=== PATIENT | female | born 1980 | race Caucasian/White ===

== ENCOUNTER → 2019-04-26 11:55 | Outpatient (BNVA) | payer BC, SELFPAY | PROVIDERS: Family Provider Family Medicine; Visit Provider Obstetrics & Gynecology | DX: Z12.4 Encounter for screening for malignant neoplasm of cervix (principal); N92.0 Excessive and frequent menstruation with regular cycle | CPT/HCPCS: 88175 ==

== ENCOUNTER 2019-12-07 14:30 | Outpatient (CLI) | payer BC, SELFPAY ==
--- NOTE | 2019-12-07 14:41 | XRR_ITS ---
PROCEDURE INFORMATION: Exam: XR Chest, 2 Views Exam date and time: 12/07/2019 2:52 PM Age: 39 years old Clinical indication: Condition or disease; Lung condition and disease; Other: Asthmatic bronchitis/recent covid TECHNIQUE: Imaging protocol: XR of the chest Views: 2 views. COMPARISON: No relevant prior studies available. FINDINGS: Lungs: Unremarkable. No consolidation. Pleural space: Unremarkable. No pleural effusion. No pneumothorax. Heart/Mediastinum: Unremarkable. No cardiomegaly. Bones/joints: Unremarkable. XR/XR chest 2V* [id number] IMPRESSION: No acute findings.
== END 2019-12-07 14:31 | disposition home or self-care (01) ==
LOC: RAD 14:39
PROVIDERS: PCP Family Medicine; Visit Provider Nurse Practitioner Family
DX: J45.909 Unspecified asthma, uncomplicated (principal)
CPT/HCPCS: 71046

== ENCOUNTER → 2021-08-06 14:37 | Outpatient (BNVA) | payer OTHER, BC, SELFPAY | PROVIDERS: PCP Family Medicine; Visit Provider Family Medicine | DX: Z00.00 Encounter for general adult medical examination without abnormal findings (principal); E03.9 Hypothyroidism, unspecified | CPT/HCPCS: 87624 ==

== ENCOUNTER → 2021-08-13 13:56 | Outpatient (BNVA) | payer OTHER, BC, SELFPAY | PROVIDERS: PCP Family Medicine; Visit Provider Family Medicine | DX: Z00.00 Encounter for general adult medical examination without abnormal findings (principal) | CPT/HCPCS: 84443; 85025 ==

== ENCOUNTER 2021-12-23 09:20 | Day surgery (SDC) | payer OTHER, SELFPAY ==
[2021-12-21 10:00] VITALS: BMI 24.2
--- NOTE | 2021-12-21 10:32 | ANES.PREANE2 ---
Pre-Anesthetic Assessment Height/Weight: Height 1.68 m Weight 68.039 kg Preop Diagnosis: Menorrhagia Operation Date: 12/23/21 10:30 Proposed Procedures p Hysteroscopy with Endometrial ablation 90918,N92.0 Allergic to Latex(Not Applicable) - Jc León MD s Hysteroscopy w/ Myosure(Not Applicable) - Jc León MD s Dilation And Curettage (D&C)(Not Applicable) - Jc León MD Familial anesthetic complications: Syncopal after prior surgeries Social No alcohol and No tobacco Exam alert, oriented x 3, clear to auscultation bilaterally and regular rate & rhythm Airway Mallampati: Class II Dentition: full Pulmonary None reported CV/HEM Anemia None reported Hepatic None reported GI None reported Metabolic Thyroid Disease [facility] None reported Neuropsych 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 Only takes synthroid for the pituitary, no other hormones. No issues with increased intracranial pressures. Anesthetic Plan ASA status: 3 Anesthesia: General Risk of > 500 ml blood loss (7ml/kg in children): No Other Pertinent Information Patient has tendency towards vasovagal syncope, passed out d/t experiencing pain, causing a fall. Medications/Allergies Home Medications Medication Instructions Recorded Confirmed Last Taken Type levothyroxine 200 mcg capsule 200 mcg PO DAILY #30 caps 10/06/21 12/21/21 12/19/21 Rx Allergies Allergy/AdvReac Type Severity Reaction Status Date / Time latex Allergy Severe rash Verified 12/21/21 09:59 acetaminophen Allergy swelling Verified 12/21/21 09:59 [From Capital with Codeine] rash cephalexin [From Keflex] Allergy hives, Verified 12/21/21 09:59 swelling ciprofloxacin Allergy hives, Verified 12/21/21 09:59 swelling codeine Allergy swelling Verified 12/21/21 09:59 [From Capital with Codeine] rash metronidazole [From Flagyl] Allergy hives, Verified 12/21/21 09:59 swelling nitrofurantoin Allergy hives, Verified 12/21/21 09:59 [From Macrobid] swelling Penicillins Allergy hives Verified 12/21/21 09:59 Sulfa (Sulfonamide Allergy hives, Verified 12/21/21 09:59 Antibiotics) swelling [facility] Anesthesia Medical History (Updated 04/28/19 @ 18:11 by Mark Monzon MD) Anxiety Congenital blindness Left eye History of herpes genitalis Hypothyroidism, postsurgical Surgical History (Updated 11/16/21 @ 09:46 by Mally Bhakta, RN) History of bilateral tubal ligation (04/10/04) Performed at time of section. Performed by Dr. Monzon at [facility] in [place], [place]. History of delivery (11/17/01) Dx: Active herpes. Performed at [facility] in [place], [place]. History of delivery (04/23/03) Repeat LTCS. Performed by Dr. Monzon at [facility] in [place], [place] History of delivery (04/10/04) Repeat LTCS with BTL. Performed by Dr. Monzon at [facility] in [place], [place] History of eye surgery (~2004) Cosmetic. Due to congenital blindness in the left eye History of foot surgery (~2017) left foot for tendon resection History of laparoscopy (07/20/05) Lysis of adhesions. Dx: Pelvic pain, Dyspareunia. Performed by Dr. Monzon at [facility] in [place], [place]. to have adhesions of omentum to the anterior abdominal wall, uterus to anterior abdominal wall. History of laparoscopy (02/03/10) Lysis of adhesions. Dx: Pelvic pain, Dyspareunia. Performed by Dr. Monzon at [facility] in [place], [place]. adhesions of omentum to anterior abdominal wall. History of thyroidectomy (~2007) Performed by Dr. Morales in [facility] History of tonsillectomy and adenoidectomy (~1999) History of wisdom tooth extraction (~1994) Family History (Updated 11/16/21 @ 09:48 by Mally Bhakta, RN) Mother Thyroid disease Grandmother Ovarian cancer paternal age onset young Colon cancer paternal , states that she was young Thyroid disease maternal Uterine cancer paternal age onset was young Family/Other Thyroid disease maternal aunts Denies family history of Diabetes Clotting disorder Heart disease Hyperlipidemia Anesthesia complication Bleeding disorder Hypertension Stroke Social History Smoking and tobacco status: never smoked Alcohol intake: never Female Reproductive History Date of last menstrual period: 12/20/21 Data Anesthesia Cardiac Studies: No Data to Display
[2021-12-21 10:38] LABS: Basophils % 0.6 %; Eosinophils # 0.1 10^3/uL (0.0-0.8); Eosinophils % 2.2 %; Hematocrit 36.1 % (37.0-47.0); Lymphocytes # 1.6 10^3/uL (0.8-4.8); Lymphocytes % 24.4 %; Mean Corpuscular HGB Conc 30.5 g/dL (30.0-36.0); Mean Corpuscular Hemoglobin 24.2 pg (28.0-34.0); Mean Corpuscular Volume 79.3 fl (81-99); Monocytes # 0.5 10^3/uL (0.2-0.9); Monocytes % 7.4 %; Neutrophils # 4.13 10^3/uL (1.8-7.7); Neutrophils % 65.1 %; Nucleated Red Blood Cells % 0 %; Platelet Count 291 10^3/cmm (130-400); Red Blood Count 4.55 10^6/uL (4.1-5.3); Red Cell Distribution Width 15.3 % (12.1-15.1); White Blood Count 6.4 10^3/uL (4.0-10.0)
[2021-12-21 11:10] LABS: Alanine Aminotransferase 7 U/L (0-33); Albumin Level 3.8 g/dL (3.5-5.2); Alkaline Phosphatase 91 U/L (35-105); Anion Gap 11.4 (5-19); Aspartate Amino Transferase 11 U/L (0-32); Blood Urea Nitrogen 10 mg/dL (6-20); Calcium 9.1 mg/dL (8.5-10.5); Carbon Dioxide 28 mmol/L (22-29); Chloride 98 mmol/L (98-107); Globulin 3.4 g/dL (1.3-4.6); Glucose 87 mg/dL (65-115); Osmolality Calculated 276 mOsm/kg (285-295); Potassium 3.4 mmol/L (3.5-5.1); Sodium 134 mmol/L (136-145); Total Bilirubin 0.2 mg/dL (0.15-1.2); Total Protein 7.2 g/dL (6.6-8.7)
[2021-12-23] MEDS: scopolamine 1.5 Patch 1 PATCH TRANSDERMA (09:35)
[2021-12-23 09:46] VITALS: BP 172/115; PULSE 85; RESP 18; TEMP 36.3; O2SAT 98
[2021-12-23] MEDS: sodium chloride 0.9% 500 ML IV (10:08)
--- NOTE | 2021-12-23 10:22 | P.ANESUD_ITS ---
Pre-Anesthetic Update Pre-Anesthetic Assessment: Date of Surgery/Procedure: 12/23/21 Preop Ainsley gnosis: Menorrhagia Proposed Procedure: Operation Date: 12/23/21 10:30 Proposed Procedures p Hysteroscopy with Endometrial ablation 94342,N92.0 Allergic to Latex(Not Applicable) - Jc León MD s Hysteroscopy w/ Myosure(Not Applicable) - Jc León MD s Dilation And Curettage (D&C)(Not Applicable) - Jc León MD Any changes to Pre-Anesthetic Assessment?: No Last Intake: Intake Last Liquid Date 12/22/21 Last Liquid Time 18:00 Last Solid Date 12/22/21 Last Solid Time 18:00 Labs Last 48hrs: Short CBC 12/21/21 Range/Units 10:23 WBC 6.4 (4.0-10.0) 10^3/ uL Hgb 11.0 L (11.5-15.3) g/dL Hct 36.1 L (37.0-47.0) % MCV 79.3 L (81-99) fl Plt Count 291 (130-400) 10^3/c mm Neut % (Auto) 65.1 % Neut # (Auto) 4.13 (1.8-7.7) 10^3/u L BMP 12/21/21 10:23 Sodium 134 L Potassium 3.4 L Chloride 98 Carbon Dioxide 28 BUN 10 Creatinine 0.8 Glucose 87 Calcium 9.1 Liver Function 12/21/21 Range/Units 10:23 Total Bilirubin 0.2 (0.15-1.2) mg/dL AST 11 (0-32) U/L ALT 7 (0-33) U/L Alkaline Phosphata se 91 (35-105) U/L Albumin 3.8 (3.5-5.2) g/dL Blood Bank 12/21/21 10:23 Blood Type O Positive Rho(D) Type Positive Antibody Screen Negative Vitals: Temperature 97.4 F L 12/23/21 09:46 Temperature Source Temporal Artery S can 12/23/21 09:46 Pulse Rate 85 12/23/21 09:46 Respiratory Rate 18 12/23/21 09:46 Blood Pressure 172/115 12/23/21 09:46 Blood Pressure Madeline n 134 12/23/21 09:46 Pulse Oximetry 98 12/23/21 09:46 Oxygen Delivery Me thod 12/23/21 09:46 Exam: Pre-Anes Outpt Exam: alert, oriented x 3, clear to auscultation bilaterally and regular rate & rhythm Cardiac Studies: No Data to Display
[2021-12-23] MEDS: sodium chloride 0.9% 1,000 ML 30 ML IV (10:41)
[2021-12-23 11:02] LABS: OR HCG Qualitative Urine Negative (Negative)
--- NOTE | 2021-12-23 11:04 | W.PM.OPSUD ---
Surgery/Procedure H&P Update DATE OF PROCEDURE: December 23, 2021 DATE H&P PERFORMED: 12/21/21 H&P UPDATE INFORMATION: I have reviewed H&P completed within last 30 days, I have examined patient prior to procedure and No changes to prior documentation PREOP DIAGNOSIS: Menorrhagia PLANNED PROCEDURE: Operation Date: 12/23/21 10:30 Proposed Procedures p Hysteroscopy with Endometrial ablation 95276,N92.0 Allergic to Latex(Not Applicable) - Jc León MD s Hysteroscopy w/ Myosure(Not Applicable) - Jc León MD s Dilation And Curettage (D&C)(Not Applicable) - Jc León MD
[2021-12-23 11:08] LABS: Add Urine Microscopic? NO; Charge for UA Resulting for Rev
[2021-12-23 11:23] LABS: Bilirubin Urine Neg (Negative); Blood Urine Neg (Negative); Glucose Urine UA Norm (Normal); Ketones Urine Negative (Negative); Leukocyte Esterase Urine Negative (Negative); Nitrate Urine Negative (Negative); Protein Urine Neg (Negative); Urine Appearance Clear (CLEAR); Urine Color Yellow (Yellow); Urobilinogen Urine Norm (Negative); pH Urine 7 (5-7)
[2021-12-23] MEDS: levofloxacin-dextrose 5 % 500 MG/100 ML PREMIX 100 MG IV (11:56)
[2021-12-23] MEDS: lidocaine 2% INJ 20 mL 10 ML INJECTION (12:43)
--- NOTE | 2021-12-23 12:47 | PM.OP ---
Operative Report Date of procedure: December 23, 2021 Pre-op diagnosis: Preop Diagnosis Menorrhagia Post-op diagnosis: Same as above Post-op findings: Referral active in the [facility] Procedure done: Hysteroscopy and D&C via MyoSure. Endometrial ablation via NovaSure Specimens removed/disposition: Endometrial curettings Surgeon: Jc León MD Estimated blood loss (mL): 10 IV fluids (mL): 600 Urine output (mL): 150 Complications: None Procedure: After informed consent, the risks included but were not limited to bleeding, infection, injury to internal organs. The patient was counseled on a possible laparotomy and on the potential need for hysterectomy. The patient expressed understanding of the risks involved, all questions were answered, and the patient consented to the procedure. The patient was taken to the operating room where general anesthesia was administered. She was placed in the dorsal lithotomy position and prepped and draped in sterile fashion. A time out procedure was performed. The patient was examined under anesthesia and found to have a normal uterus with normal adnexa. A sterile weight speculum was placed in the vagina. The uterus was then gently sounded to 8 cm, and the cervix was dilated. The 0 degrees MyoSure hysteroscope was advanced gently to the uterine fundus while visualizing the monitor. Survey of the uterine cavity showed: the fundus shows normal proliferative endometrium; left ostium was visualized, and lateral wall with proliferative endometrium; right ostium visualized, and lateral wall with proliferative endometrium; anterior and posterior hodges are with proliferative endometrium; endocervical canal is normal. The MyoSure device was advanced and the direct visualization the endometrium was morcellated without complication. At the end of morcellation the fluid deficit was 230 mL and was estimated at approximately 100 mL were on the floor. Then proceeded to perform the endometrial ablation. The length of the cervical canal was 3 cm and the canal was dilated to 8 mm with Leny?s dialators. and the 2.7 cm hysteroscope advanced gently to the uterine fundus while visualizing the monitor. Survey of the uterine cavity showed: fundus normal proliferative endometrium; left and right ostiums visualized, anterior wall with proliferative endometrium; and posterior wall with proliferative endometrium; the endocervical canal is normal. No intrauterine lesions noted. The hysteroscope was removed. A curette was advanced gently to the uterine fundus and rotated to clear the uterus. A sharp curettage wan then performed until a gritty texture was noted. There was minimal bleeding noted. The sterile NovaSure? Disposable Device package was opened, connected and tested per instructions. It was found to be working properly. The device?s array is completely enclosed by the external sheath and the WIDTH dial reads approximately 0.5 cm. The appropriate cavity length settings was set 5 cm. Adjust and lock the cavity length setting feature on the Disposable Device to the value obtained. The Cervical Collar was fully retracted to its proximal position. Confirmed that the cervix was dilated to 8.0 mm. While maintaining a slight traction on the tenaculum to minimize the angle of the uterus. In-line with the axis of the uterus the Disposable Device was inserted transcervically into the uterine cavity and advance the device until the distal end of the sheath touched the fundus. The handles were slowly squeezed up to the point of increased resistance without locking it. The WIDTH dial read 4 cm. The Disposable Device handles were slowly squeezed together while gently moving the Disposable Device -0.5 cm to and from the fundus and rotating the handle of the Disposable Device 45? counterclockwise from the vertical plane and 45? clockwise from the vertical plane until the handles locked and confirmed the with dial read greater than 2.5 cm. The Disposable Device was gently moved using anterior, posterior and lateral movements. The Disposable Device was slightly pulled back until the WIDTH dial reading reduced by approximately 0.2-0.5 cm. While holding the tenaculum, the Disposable Device was advance to the fundus, maintaining slight forward pressure. The WIDTH dial read to the previous measurement. The Cervical Collar was slide forward until it forms a seal against the external cervical os. The value indicated on the width dial into the NovaSure? RF Controller. In Automatic Mode the Cavity Integrity Assessment (PHILL) procedure by stepping on the foot switch once was began. The cavity integrity assessment LED signaled the test has passed. The ablation cycle started was after the successful completion of the Cavity Integrity Assessment test. Termination of the ablation was automatic at 55 seconds. The Cervical Collar was slide it to its proximal position. The Disposable Device was unlock, holding the front warp knit operator stationary and pulling the rear handles backwards until the Closed Array indicator reads closed the Disposable Device was withdrawn from the uterine cavity. A hysteroscopy was performed post ablation to confirm therapy it was noted that endometrial cavity had been thoroughly ablated. Prior to this, a sharp curettage was performed, and endometrial curettings were also collected. The hysteroscope and the tenaculum were removed with goad hemostasis noted. The patient tolerated the procedure well. The patient was taken to the recovery area in stable condition.
[2021-12-23 12:58] VITALS: BP 141/89; PULSE 95; RESP 17; TEMP 36.7; O2SAT 100
[2021-12-23 13:05] VITALS: BP 136/95; PULSE 100; RESP 17; O2SAT 100
[2021-12-23 13:11] VITALS: BP 138/96; PULSE 96; RESP 20; TEMP 36.3; O2SAT 100
[2021-12-23 13:14] VITALS: BP 132/84; PULSE 90; RESP 17; O2SAT 99
[2021-12-23 13:29] VITALS: BP 132/88; PULSE 88; RESP 17; O2SAT 96
--- NOTE | 2021-12-23 14:47 | ANE.PACU2 ---
Inpatient post-anesthesia follow up: Airway intact: Yes Vital signs: Temperature 97.3 F Pulse Rate 88 Respiratory Rate 17 Blood Pressure 132/88 Pulse Oximetry 96 Oxygen Delivery Me thod Room Air Oxygen Flow Rate 10 Fraction of Inspir ed Oxygen Hydration adequate: Yes Nausea and vomiting: No Pain level: 1 Mental status: Baseline
== END 2021-12-23 13:45 | disposition home or self-care (01) ==
PROVIDERS: PCP Family Medicine; Visit Provider Obstetrics & Gynecology
PROC: 0U598ZZ Destruction of Uterus, Via Natural or Artificial Opening Endoscopic (ICD-10-PCS; CPT 58563; principal; 2021-12-23 10:20)
PROC: 0UDB8ZZ Extraction of Endometrium, Via Natural or Artificial Opening Endoscopic (ICD-10-PCS; CPT 58558; 2021-12-23 10:20)
PROC: (CPT 58120; 2021-12-23 10:20)
DX: N92.0 Excessive and frequent menstruation with regular cycle (principal); F41.9 Anxiety disorder, unspecified; E03.9 Hypothyroidism, unspecified
CPT/HCPCS: 58558; 36415; 80053; 81003; 81025; 84703; 85025; 86850; 86900; 88305; J1100; J1885; J1956; J2405; J2704; J3010; J7030; J7040

== ENCOUNTER → 2022-01-08 10:19 | Outpatient (BNVA) | payer OTHER, SELFPAY | PROVIDERS: PCP Family Medicine; Visit Provider Obstetrics & Gynecology | DX: Z87.440 Personal history of urinary (tract) infections (principal) | CPT/HCPCS: 81000 ==

== ENCOUNTER → 2022-04-26 10:15 | Outpatient (BNVA) | payer OTHER, SELFPAY | PROVIDERS: PCP Family Medicine; Visit Provider Internal Medicine | DX: E89.0 Postprocedural hypothyroidism (principal) | CPT/HCPCS: 84439; 84443; 84480 ==

== ENCOUNTER → 2022-08-31 12:03 | Outpatient (BNVA) | payer OTHER, SELFPAY | PROVIDERS: PCP Family Medicine; Visit Provider Family Medicine | DX: I10 Essential (primary) hypertension | CPT/HCPCS: 80053; 80061; 85025 ==

== ENCOUNTER 2022-09-13 08:57 | Outpatient (CLI) | payer OTHER, SELFPAY ==
--- NOTE | 2022-09-13 09:13 | MM_ITS ---
WS: [id number] BILATERAL 3D TOMOSYNTHESIS DIGITAL SCREENING MAMMOGRAPHY WITH CAD CLINICAL INFORMATION: SCREENING HISTORY: Screening mammogram. No current complaints. COMPARISON: None. TECHNIQUE: Bilateral CC and MLO views. FINDINGS: The breasts are composed of heterogeneous fibroglandular density tissue, which can limit the detectio n of small underlying mass lesions. No suspicious mass, asymmetry, calcifications, or architectural d istortion. No evidence of malignancy. Diffuse scattered punctate calcifications RIGHT greater than LE FT breast. This is similar to previous. MM/[place] [id number] IMPRESSION: BI-RADS: 2-Benign FOLLOW UP: 1 Year Follow-up Recommend return to annual screening mammography.
== END 2022-09-13 08:58 | disposition home or self-care (01) ==
LOC: RAD 09:02 → MOBLMAM 09:11
PROVIDERS: PCP Family Medicine; Visit Provider Family Medicine
DX: Z12.31 Encounter for screening mammogram for malignant neoplasm of breast (principal)
CPT/HCPCS: 77063; 77067

== ENCOUNTER → 2022-09-14 13:28 | Outpatient (BNVA) | payer OTHER, SELFPAY | PROVIDERS: PCP Family Medicine; Visit Provider Podiatrist Foot & Ankle Surgery | DX: L84 Corns and callosities; M89.8X7 Other specified disorders of bone, ankle and foot | CPT/HCPCS: 73630 ==

== ENCOUNTER 2022-10-27 05:52 | Day surgery (SDC) | payer OTHER, SELFPAY ==
[2022-10-26 11:05] VITALS: BMI 31.2
[2022-10-27 06:10] VITALS: BP 153/99; PULSE 74; RESP 16; TEMP 36.6; O2SAT 100
[2022-10-27 06:11] VITALS: BMI 25.8
[2022-10-27] MEDS: gabapentin 300 mg Capsule PO (06:17)
[2022-10-27] MEDS: CELEcoxib 200 mg Capsule 400 MG PO (06:17)
[2022-10-27] MEDS: sodium chloride 0.9% 1,000 ML 30 ML IV (06:18)
--- NOTE | 2022-10-27 06:39 | ANES.PREANE2 ---
Pre-Anesthetic Assessment Height/Weight: Height 1.68 m Weight 72.575 kg O2 Del Method Room Air 10/27/22 06:12 Preop Diagnosis: Right foot fifth digit exostosis Operation Date: 10/27/22 07:00 Proposed Procedures p Partial excision right foot 5th digit proximal phalanx 54376 m89.8X7(Right) - Abebe Stiles, DPM Was Beta Kolton taken within 24 hours: N/A Was Clonidine taken within 24 hours: N/A Last intake: Intake Last Liquid Date 10/26/22 Last Liquid Time 18:00 Last Solid Date 10/26/22 Last Solid Time 18:00 Social No tobacco Exam alert, oriented x 3, clear to auscultation bilaterally and regular rate & rhythm Airway Submandibular: within normal limits Cervical ROM: within normal limits Mallampati: Class III History/ROS No significant history except as noted CV/HEM Hypertension Metabolic Thyroid Disease Neuropsych Syncope Hx vasovagal syncope Anesthetic Plan ASA status: 3 Anesthesia: General (LMA) Risk of > 500 ml blood loss (7ml/kg in children): No Medications/Allergies Home Medications Medication Instructions Recorded Confirmed Last Taken Type levothyroxine 200 mcg tablet 200 mcg PO DAILY #90 tabs 07/06/22 10/26/22 10/26/22 Rx (Synthroid) amlodipine 2.5 mg tablet 2.5 mg PO DAILY #30 tabs 08/12/22 10/26/22 10/26/22 Rx naltrexone 8 mg-bupropion 90 mg 2 tab PO BID #120 tabs 08/31/22 10/26/22 2 Months Ago Rx tablet,extended release (Contrave) ~08/25/22 trazodone 50 mg tablet 50 mg PO DAILY #30 tabs 08/31/22 10/26/22 10/26/22 Rx ondansetron HCl 4 mg tablet 4 mg PO Q6H PRN nausea and 09/14/22 10/26/22 2 Months Ago Rx vomiting #14 tabs ~08/25/22 epinephrine 0.3 mg/0.3 mL 0.3 mg (0.3 mL) IM Q4H PRN 09/27/22 10/26/22 Unknown Rx injection, auto-injector (EpiPen anaphylaxis #2 ea 2-Kevin) fluconazole 150 mg tablet 150 mg PO DAILY #3 tabs 10/26/22 Unknown Rx (Diflucan) Allergies Allergy/AdvReac Type Severity Reaction Status Date / Time latex Allergy Severe rash Verified 10/26/22 11:02 acetaminophen Allergy swelling Verified 10/26/22 11:02 [From Capital with Codeine] rash cephalexin [From Keflex] Allergy hives, Verified 10/26/22 11:02 swelling ciprofloxacin Allergy hives, Verified 10/26/22 11:02 swelling codeine Allergy swelling Verified 10/26/22 11:02 [From Capital with Codeine] rash metronidazole [From Flagyl] Allergy hives, Verified 10/26/22 11:02 swelling nitrofurantoin Allergy hives, Verified 10/26/22 11:02 [From Macrobid] swelling Penicillins Allergy hives Verified 10/26/22 11:02 Sulfa (Sulfonamide Allergy hives, Verified 10/26/22 11:02 Antibiotics) swelling vancomycin Allergy Unknown Verified 10/26/22 11:02 Current Medications Generic Name Dose Route Start Last Admin Trade Name Freq PRN Reason Stop Dose Admin Sodium Chloride 1,000 mls @ 30 mls/hr 10/27/22 06:15 10/27/22 06:30 Sodium Chloride 0.9% IV 10/28/22 06:14 30 mls/hr .Q24H LES Infusion PFSH Anesthesia Medical History Anxiety Congenital blindness Left eye History of herpes genitalis Hypothyroidism, postsurgical Surgical History History of bilateral tubal ligation (04/10/04) Performed at time of section. Performed by Dr. Monzon at [facility] in [place], [place]. History of delivery (11/17/01) Dx: Active herpes. Performed at [facility] in [place], [place]. History of delivery (04/23/03) Repeat LTCS. Performed by Dr. Monzon at [facility] in [place], [place] History of delivery (04/10/04) Repeat LTCS with BTL. Performed by Dr. Monzon at [facility] in [place], [place] History of eye surgery (~2004) Cosmetic. Due to congenital blindness in the left eye History of foot surgery (~2017) left foot for tendon resection History of laparoscopy (07/20/05) Lysis of adhesions. Dx: Pelvic pain, Dyspareunia. Performed by Dr. Monzon at [facility] in [place], [place]. to have adhesions of omentum to the anterior abdominal wall, uterus to anterior abdominal wall. History of laparoscopy (02/03/10) Lysis of adhesions. Dx: Pelvic pain, Dyspareunia. Performed by Dr. Monzon at [facility] in [place], [place]. adhesions of omentum to anterior abdominal wall. History of thyroidectomy (~2007) Performed by Dr. Morales in [facility] History of tonsillectomy and adenoidectomy (~1999) History of wisdom tooth extraction (~1994) Family History Mother Thyroid disease Grandmother Ovarian cancer paternal age onset young Colon cancer paternal , states that she was young Thyroid disease maternal Uterine cancer paternal age onset was young Family/Other Thyroid disease maternal aunts Denies family history of Diabetes Clotting disorder Heart disease Hyperlipidemia Anesthesia complication Bleeding disorder Hypertension Stroke Social History Smoking and tobacco status: never smoked Alcohol intake: never Substance/Drug Use: former Date of last use: 2003 Data Anesthesia Cardiac Studies: No Data to Display
--- NOTE | 2022-10-27 06:51 | W.PM.OPSUD ---
Surgery/Procedure H&P Update DATE OF PROCEDURE: October 27, 2022 DATE H&P PERFORMED: 10/18/22 CHANGES TO PREVIOUS DOCUMENTATION: No changes PREOP DIAGNOSIS: Right foot fifth digit exostosis PLANNED PROCEDURE: Operation Date: 10/27/22 07:00 Proposed Procedures p Partial excision right foot 5th digit proximal phalanx 22045 m89.8X7(Right) - Abebe Stiles DPM
[2022-10-27 06:59] LABS: OR HCG Qualitative Urine Negative (Negative)
[2022-10-27] MEDS: levofloxacin-dextrose 5 % 500 MG/100 ML PREMIX 100 MG IV (07:03)
[2022-10-27] MEDS: BUPivacaine 0.5% INJ 30 mL INJECTION (07:29)
[2022-10-27 07:36] VITALS: BP 138/98; PULSE 90; RESP 18; TEMP 36.1; O2SAT 97
--- NOTE | 2022-10-27 07:37 | W.PM.BPON ---
Date of procedure: 10/27/22 Surgeon name: Froilan ReddyPLina Aircraft Air Conditioning Mechanic(s) name(s): None Procedure(s) performed: Right foot fifth digit exostectomy Description of findings: Medial exostosis of right foot fifth digit DIPJ Estimated blood loss: 5 cc Specimen(s) removed: None Post-operative diagnosis: Right foot fifth digit exostosis
--- NOTE | 2022-10-27 07:39 | P.OP_ITS ---
Operative Report Date of procedure: October 27, 2022 Pre-op diagnosis: Right foot fifth digit exostosis Post-op diagnosis: Same Post-op findings: Exostosis right foot fifth digit proximal phalanx medial head Procedure done: Exostectomy right foot fifth digit proximal phalanx CPT 43144 Implants: None Surgeon: Abebe Stiles DPM Complications: None Findings: See above Brief History: Patient is a 42-year-old female that has a history of right foot fifth digit callus formation from underlying exostosis. The patient has had the aforementioned chief complaint for some time. Conservative treatment measures have been attempted and the patient has opted for surgical intervention at this time. A lengthy discussion regarding the procedure, including risks and complications has been had with the patient and is noted in the recent clinic note. Written and verbal consent have been obtained. All patient questions have been answered to the patient?s satisfaction. No written or verbal guarantees have been given or implied. The patient has been NPO since midnight. The history has been reviewed and the history and physical is current. The signed consent was confirmed and placed in the patient chart. Patient imaging has been reviewed and is consistent with the diagnosis. Under mild sedation, the patient was brought into the operating room and placed on the table in the supine position. IV antibiotics were given by the anesthesia team as preoperative surgical prophylaxis. IV sedation was then performed by the anesthesiateam. A pneumatic tourniquet was then placed about the right ankle. The operative extremity was then prepped and draped in the usual fashion. The extremity was then elevated and exsanguinated before the tourniquet was inflated to 250 mmHg. After inflation, the following procedure was then performed. Procedure: Attention was directed to the right foot fifth digit where a centimeter incision was made over the joint. Dissection was carried down to subcutaneous and superficial fascia. A mosquito hemostat was used to bluntly dissect medially over the distal interphalangeal joint. Next, a reciprocating power rasp was inserted into the incision and used to smooth down the medial condyle of the head of the proximal phalanx of the fifth digit. Multiple passes were made with a reciprocating rasp until exostosis was no longer visualized on C-arm imaging. The site was then irrigated with copious amounts of sterile saline. Resection of the exostosis was confirmed on C-arm imaging. The incision site was then dressed with 4-0 nylon in horizontal mattress fashion before being dressed with Xeroform, 4 x 4 gauze, Kerlix and Coban. The tourniquet was let down and good hyperemic response was noted all digits of the right foot. The patient tolerated the procedure and anesthesia well and without complication . The patient was transported from the operating room to the recovery room with vital signs stable and vascular status intact to all digits of the right foot. Thepatient was given both written and verbal instructions to remain as tolerated to the operative extremity, to keep dressings/splint clean, dry and intact and to take pain medication as directed. The patient will follow-up in the outpatient setting at their scheduledappointment. The patient was discharged with my personal number and was instructed to call if any questions or issues should arise. They were discharged home once anesthesia criteria was met.
[2022-10-27 07:40] VITALS: BP 134/94; PULSE 82; RESP 17; O2SAT 98
[2022-10-27 07:44] VITALS: BP 129/92; PULSE 81; RESP 17; TEMP 36.1; O2SAT 98
[2022-10-27 07:51] VITALS: BP 143/61; PULSE 78; RESP 16; TEMP 36.3; O2SAT 98
--- NOTE | 2022-10-27 18:18 | ANE.PACU2 ---
Inpatient post-anesthesia follow up: Airway intact: Yes Vital signs: Temperature 97.4 F Pulse Rate 78 Respiratory Rate 16 Blood Pressure 143/61 Pulse Oximetry 98 Oxygen Delivery Me thod Room Air Oxygen Flow Rate Fraction of Inspir ed Oxygen Hydration adequate: Yes Nausea and vomiting: No Pain level: 2 Mental status: Baseline
== END 2022-10-27 08:18 | disposition home or self-care (01) ==
PROVIDERS: PCP Family Medicine; Visit Provider Podiatrist Foot & Ankle Surgery
PROC: (CPT 28140; principal; 2022-10-27 07:00)
DX: M89.9 Disorder of bone, unspecified (principal); I10 Essential (primary) hypertension
CPT/HCPCS: 28124; 73620; 76000; 81025; 84703; J1956; J2704; J3010; J3490; J7030

== ENCOUNTER → 2022-11-10 14:17 | Outpatient (BNVA) | payer OTHER, SELFPAY | PROVIDERS: PCP Family Medicine; Visit Provider Podiatrist Foot & Ankle Surgery | DX: L84 Corns and callosities; M89.8X7 Other specified disorders of bone, ankle and foot | CPT/HCPCS: 73630 ==

== ENCOUNTER → 2023-01-07 09:02 | Outpatient (BNVA) | payer OTHER, SELFPAY | PROVIDERS: PCP Family Medicine; Visit Provider Nurse Practitioner Family | DX: N39.0 Urinary tract infection, site not specified (principal) | CPT/HCPCS: 81003 ==

== ENCOUNTER → 2023-01-19 14:51 | Outpatient (BNVA) | payer OTHER, SELFPAY | PROVIDERS: PCP Family Medicine; Visit Provider Podiatrist Foot & Ankle Surgery | DX: M66.871 Spontaneous rupture of other tendons, right ankle and foot | CPT/HCPCS: 73630 ==

== ENCOUNTER 2023-01-26 12:55 | Outpatient (CLI) | payer OTHER, SELFPAY ==
--- NOTE | 2023-01-26 13:00 | MR_ITS ---
WS: [id number] MRI RIGHT FOOT WITHOUT CONTRAST. COMPARISON: None Multiplanar, multisequence imaging is performed without contrast. No fractures or marrow edema. There is poor fat suppression involving the toes. There is increased T2 signal surrounding the distal extensor hallucis longus tendon. There is increas ed fluid within the tendon sheath distally beginning over the mid first metatarsal extending over the first phalanx. There is partial separation from the metatarsal head. No full-thickness tear or retra ction. No additional tendon abnormality is identified. The Achilles tendon is normal. IMPRESSION: 1. Partial tear with mild tenosynovitis involving the distal extensor hallucis longus tendon. No full -thickness tear or retraction. No marrow edema.
== END 2023-01-26 12:56 | disposition home or self-care (01) ==
LOC: RAD 12:55
PROVIDERS: PCP Family Medicine; Visit Provider Podiatrist Foot & Ankle Surgery
DX: M66.871 Spontaneous rupture of other tendons, right ankle and foot (principal)
CPT/HCPCS: 73718

== ENCOUNTER → 2023-04-01 15:56 | Outpatient (BNVA) | payer BC, SELFPAY | PROVIDERS: PCP Family Medicine; Visit Provider Obstetrics & Gynecology | DX: Z01.419 Encounter for gynecological examination (general) (routine) without abnormal findings (principal) | CPT/HCPCS: 83001 ==

== ENCOUNTER → 2023-04-22 12:32 | Outpatient (BNVA) | payer BC, SELFPAY | PROVIDERS: PCP Family Medicine; Visit Provider Family Medicine | DX: R35.0 Frequency of micturition (principal); N39.0 Urinary tract infection, site not specified | CPT/HCPCS: 81003 ==

== ENCOUNTER → 2023-05-04 13:14 | Outpatient (BNVA) | payer BC, SELFPAY | PROVIDERS: PCP Family Medicine; Visit Provider Nurse Practitioner Women's Health | DX: R39.15 Urgency of urination (principal) | CPT/HCPCS: 81000; 87086 ==

== ENCOUNTER → 2023-06-24 14:25 | Outpatient (BNVA) | payer BC, SELFPAY | PROVIDERS: PCP Family Medicine; Visit Provider Nurse Practitioner Family | DX: N39.0 Urinary tract infection, site not specified (principal) | CPT/HCPCS: 81000 ==

== ENCOUNTER → 2023-09-21 08:22 | Outpatient (BNVA) | payer BC, SELFPAY | PROVIDERS: PCP Family Medicine | DX: R39.9 Unspecified symptoms and signs involving the genitourinary system (principal) | CPT/HCPCS: 81000 ==

== ENCOUNTER 2024-12-13 08:18 | Outpatient (CLI) | payer BC, SELFPAY ==
--- NOTE | 2024-12-13 08:30 | XRR_ITS ---
PROCEDURE INFORMATION: Exam: XR Left Hand Exam date and time: 12/13/2024 8:56 AM Age: 44 years old Clinical indication: Pain; Hand; Left; Additional info: Acute pain at base of left thumb. Suspect overuse injury TECHNIQUE: Imaging protocol: Radiologic exam of the left hand. Views: 3 or more views. COMPARISON: No relevant prior studies available. FINDINGS: Bones/joints: Mild degenerative arthritic changes involving the 1st carpometacarpal articulation. Moderate degenerative changes involving the 2nd through 5th DIP joints. No fracture or dislocation. Soft tissues: Normal. XR/XR hand LT min 3V* [id number] IMPRESSION: Mild degenerative arthritic changes involving the 1st carpometacarpal articulation.
== END 2024-12-13 08:19 | disposition home or self-care (01) ==
PROVIDERS: PCP Nurse Practitioner Family; Visit Provider Emergency Medicine
DX: M79.645 Pain in left finger(s) (principal); M18.9 Osteoarthritis of first carpometacarpal joint, unspecified; S69.92XA Unspecified injury of left wrist, hand and finger(s), initial encounter; X50.3XXA Overexertion from repetitive movements, initial encounter; M19.042 Primary osteoarthritis, left hand
CPT/HCPCS: 73130